=== PATIENT | male | born 1945 | race Caucasian/White ===

== ENCOUNTER 2024-07-02 18:08 | Inpatient (IN) | payer OTHER ==
[~2024-07-02] VITALS: Ht 175.3 cm; Wt 59.0 kg
[2024-07-02] MEDS ORDERED: ALBUTEROL FS 2.5 MG/3 ML VIAL.NEB ONE (18:25)
[2024-07-02] MEDS ORDERED: IPRATROPIUM NEB FS 0.5 MG/2.5 ML AMPUL.NEB ONE (18:25)
[2024-07-02 18:30] VITALS: O2SAT 93
[2024-07-02] MEDS: ALBUTEROL FS 2.5 MG/3 ML VIAL.NEB NEB ONE (18:30)
[2024-07-02] MEDS: IPRATROPIUM NEB FS 0.5 MG/2.5 ML AMPUL.NEB NEB ONE (18:30)
[2024-07-02] MEDS ORDERED: ONDANSETRON HCL/PF 4 MG/2 ML VIAL ONE (18:36)
[2024-07-02] MEDS ORDERED: methylPREDNISolone SOD SUCC 125 MG/2ML VIAL ONE (18:36)
[2024-07-02] MEDS ORDERED: Magnesium 1GM/D5W 100ML PREMIX 200 ML IV ONE (18:37)
[2024-07-02 18:42] LABS: BASOPHILS % (AUTO) 0.2 % (0.0-2.0); EOSINOPHILS # (AUTO) 0.2 K/uL (0.0-0.7); EOSINOPHILS % (AUTO) 2.6 % (0.0-6.0); HEMATOCRIT 43 % (39-51); HEMOGLOBIN 14.2 g/dL (13.5-17.5); LYMPHOCYTES # (AUTO) 1.9 K/uL (0.8-4.8); LYMPHOCYTES % (AUTO) 22.1 % (20.0-44.0); MEAN CORPUSCULAR HEMOGLOBIN 31 PG (26.0-33.0); MEAN CORPUSCULAR HGB CONC 33 g/dl (31.0-36.0); MEAN CORPUSCULAR VOLUME 94 fL (80-96); MONOCYTES % (AUTO) 11.4 % (2.0-12.0); NEUTROPHILS # (AUTO) 5.3 K/uL (1.8-8.9); NEUTROPHILS % (AUTO) 63.7 % (43.0-81.0); PLATELET COUNT (AUTO) 123 K/uL (150-450); RED CELL DISTRIBUTION WIDTH 15.6 % (11.5-15.0); WHITE BLOOD COUNT (AUTO) 8.4 K/uL (4.3-11.0)
[2024-07-02] MEDS: methylPREDNISolone SOD SUCC 125 MG/2ML VIAL IV ONE (18:42)
[2024-07-02] MEDS: ONDANSETRON HCL/PF 4 MG/2 ML VIAL IVP ONE (18:43)
[2024-07-02 18:45] VITALS: O2SAT 95
[2024-07-02] MEDS: Magnesium 1GM/D5W 100ML PREMIX 200 ML IV ONE (18:45)
[2024-07-02 18:46] VITALS: O2SAT 95
[2024-07-02 18:53] LABS: CARBON DIOXIDE 31 mmol/L (21-32); CHLORIDE 101 mmol/L (98-107); CREATININE 3.2 mg/dL (0.6-1.3); GLUCOSE 144 mg/dL (74-106); SODIUM SERUM 143 mmol/L (136-145); UREA NITROGEN, BLOOD 28 mg/dL (7-18)
[2024-07-02 19:01] VITALS: O2SAT 94
[2024-07-02 19:03] LABS: LACTIC ACID 2.4 mmol/L (0.4-2.0)
[2024-07-02 19:05] LABS: ALANINE AMINOTRANSFERASE 15 U/L (12-78); ALBUMIN 4.2 g/dL (3.4-5.0); ALKALINE PHOSPHATASE 86 U/L (46-116); ASPARTATE AMINOTRANSFERASE 11 U/L (15-37); BILIRUBIN,DIRECT 0.2 mg/dL (0.0-0.2); BILIRUBIN,TOTAL 0.5 mg/dL (0.2-1.0); NT-PRO BNP 634 pg/mL (0-125); TOTAL PROTEIN, SERUM 8.2 g/dL (6.4-8.2)
[2024-07-02 19:12] LABS: INR 1.03 (0.91-1.10); PARTIAL THROMBOPLASTIN TIME 23.6 SEC (24.3-34.3); PROTHROMBIN TIME 10.9 SECS (9.2-11.1)
[2024-07-02 19:28] LABS: ABG BASE EXCESS -0.2 mmol/L (-2.0-3.0); ABG OXYGEN SATURATION 91.3 % (94.0-98.0); ABG PCO2 36.2 mmHg (35.0-48.0); ABG PH 7.433 (7.350-7.450); ABG TOTAL HEMOGLOBIN 14.2 G/dL (13.5-17.5); COHb 0.3 % (0.5-1.5); MetHb 0.3 % (0.0-1.5); O2Hb 90.8 % (94.0-97.0); SITE, ABG Right Radial; VENT MODE, BG nasal cannula
[2024-07-02] MEDS: CEFEPIME 1 GM in IV D5W 50 ML IV ONE (20:04)
[2024-07-02] MEDS ORDERED: LORAZEPAM INJ 2 MG/ML VIAL ONE (20:06)
[2024-07-02] MEDS: LORAZEPAM INJ 2 MG/ML VIAL IV ONE (20:10)
--- NOTE | 2024-07-02 20:42 | NUR ---
MRSA sent to lab
[2024-07-02] MEDS ORDERED: VANCOMYCIN 1 GM /D5W 250 ML PB IV ONE (21:25)
[2024-07-02 22:00] VITALS: BP 146/71; TEMP 98.6; O2SAT 100; O2SAT 78
[2024-07-02] MEDS ORDERED: MAGNESIUM HYDROXIDE 30 ML UDC PO PRN (22:00)
[2024-07-02] MEDS ORDERED: ONDANSETRON HCL/PF 4 MG/2 ML VIAL IVP PRN (22:00)
[2024-07-02] MEDS: VANCOMYCIN 1 GM in IV D5W 250 ML IV ONE (22:00)
--- NOTE | 2024-07-02 22:00 | NUR ---
RN HAND OFF NOTE RECEIVE REPORT FROM LINA FROM ED. PT CAME IN VIA GURNEY. ALERT AND ORIENTED X 3, VERBALLY RESPONSIVE AND ABLE TO MAKE NEEDS KNOWN. RESPIRATION EVEN AND UNLABORED AT THIS TIME. NO SOB. ON O2 VIA NC @ 4LPM. DENIES PAIN OR DISCOMFORT WHEN ASKED. PT CONNECTED TO THE MONITOR. SAFETY MEASURES IN PLACE, BED IN LOW, LOCKED POSITION. CALL LIGHT WITHIN EASY REACH.
--- NOTE | 2024-07-02 22:01 | NUR ---
Report given to Fabrice
[2024-07-02] MEDS ORDERED: ALBUTEROL FS 2.5 MG/0.5 ML VIAL.NEB NEB PRN (22:30)
[2024-07-03] VITALS (15 sets, daily range): BP systolic 118–141; BP diastolic 66–74; TEMP 97.7–98.8; O2SAT 95–100
[2024-07-03] MEDS: POTASSIUM CL. PREMIX PERIPHER. 50 ML IV SCH (01:19)
[2024-07-03] MEDS: POTASSIUM CL. PREMIX PERIPHER. 100 ML ONE (01:33)
--- NOTE | 2024-07-03 01:33 | NUR ---
POTASSIUM CHLORIDE 10MEQ/50ML X 2 BAGS OVERRIDE BY CHARGE NURSE ROBERTO BURRELL.
[2024-07-03] MEDS: LORAZEPAM INJ 2 MG/ML VIAL IV PRN (03:16)
[2024-07-03] MEDS: methylPREDNISolone SOD SUCC 40 MG/ML VIAL IV SCH (04:59)
[2024-07-03] MEDS ORDERED: CEFEPIME 2 GM in IV D5W 100 ML IV SCH (05:00)
[2024-07-03 06:43] LABS: HEMATOCRIT 38 % (39-51); HEMOGLOBIN 12.6 g/dL (13.5-17.5); LYMPHOCYTES # (AUTO) 0.3 K/uL (0.8-4.8); LYMPHOCYTES % (AUTO) 2.3 % (20.0-44.0); MEAN CORPUSCULAR HEMOGLOBIN 31 PG (26.0-33.0); MEAN CORPUSCULAR HGB CONC 34 g/dl (31.0-36.0); MEAN CORPUSCULAR VOLUME 92 fL (80-96); MONOCYTES # (AUTO) 0.3 K/uL (0.1-1.30); MONOCYTES % (AUTO) 2.2 % (2.0-12.0); NEUTROPHILS # (AUTO) 11.3 K/uL (1.8-8.9); NEUTROPHILS % (AUTO) 95.5 % (43.0-81.0); PLATELET COUNT (AUTO) 107 K/uL (150-450); RED BLOOD CELL COUNT(AUTO) 4.06 MIL/uL (4.5-6.0); RED CELL DISTRIBUTION WIDTH 15.2 % (11.5-15.0); WHITE BLOOD COUNT (AUTO) 11.9 K/uL (4.3-11.0)
[2024-07-03 06:54] LABS: CALCIUM, SERUM 8.8 mg/dL (8.5-10.1); CARBON DIOXIDE 26 mmol/L (21-32); CHLORIDE 100 mmol/L (98-107); CREATININE 4.3 mg/dL (0.6-1.3); GLUCOSE 132 mg/dL (74-106); MAGNESIUM 2.8 mg/dL (1.8-2.4); PHOSPHORUS 3.1 mg/dL (2.5-4.9); POTASSIUM 4.4 mmol/L (3.5-5.1); SODIUM SERUM 139 mmol/L (136-145); UREA NITROGEN, BLOOD 41 mg/dL (7-18)
--- NOTE | 2024-07-03 07:33 | NUR ---
VIOLIN MECHANIC OPENING NOTE (DAY SHIFT) PT RECEIVED IN BED ASLEEP, EASILY AROUSED, A/O X 3, ABLE TO MAKE HIS NEEDS KNOWN. PT IS CURRENTLY ON 4 LPM OXYGEN VIA NC SATURATING AT 97% AND DENIES SOB. PT HAS IV ACCESS ON THE RAC #20G AND A PERMACATH ON THE RIGHT CHEST WALL. PT IS CURRENTLY ON TELE MONITORING WITH A READING OF SR WITH A PULSE RANGING IN THE 70'S. ALL SAFETY MEASURES IN PLACE, BED IS LOCKED, ON THE LOWEST POSITION, WITH CALL LIGHT AND BEDSIDE TABLE WITHIN EASY REACH. PLAN OF CARE ONGOING PER HOSPITALIST.
[2024-07-03] MEDS ORDERED: VANCOMYCIN 500 MG in IV D5W 100 ML IV PRN (08:00)
[2024-07-03] MEDS: HEPARIN SODIUM, PORCINE 5000 UNITS/1 ML VIAL SQ SCH (09:42)
[2024-07-03] MEDS: IPRATROPIUM NEB FS 0.5 MG/2.5 ML AMPUL.NEB NEB SCH (10:05)
[2024-07-03] MEDS: ALBUTEROL FS 2.5 MG/0.5 ML VIAL.NEB NEB SCH (10:05)
[2024-07-03] MEDS ORDERED: IOHEXOL-350 100 ML VIAL IV ONE (11:49)
[2024-07-03] MEDS ORDERED: IV NS 0.9% 250 ML IV ONE (11:49)
[2024-07-03 11:51] LABS: THYROID STIMULATING HORMONE 0.95 uIU/mL (0.358-3.74)
[2024-07-03] MEDS ORDERED: DOXA2TAB2 PO (11:53)
[2024-07-03] MEDS ORDERED: VALA500T40 PO (11:53)
[2024-07-03] MEDS ORDERED: CLOP75TA15 PO (11:53)
[2024-07-03] MEDS ORDERED: SERT100T PO (11:53)
[2024-07-03] MEDS ORDERED: ALBU8.5H8 IH (11:53)
[2024-07-03] MEDS ORDERED: LORA-258 PO (11:53)
[2024-07-03] MEDS ORDERED: AMLO-213 PO (11:53)
--- NOTE | 2024-07-03 12:29 | NUR ---
RN NOTE THIS RN WITNESSED AN ATIVAN WASTE OF 1.5MG AND 0.5MG ADMINISTERED BY ROBERTO KESSLER.
--- NOTE | 2024-07-03 12:36 | NUR ---
WASTE OF CONTROLLED MEDICATION Nurse Magy Duran RN, witnessed nurse Bello removed 1 vial of ativan 2mg from [employer] refrigerator, waste 1.5 mg into white waste medication jug, and give 0.5 mg IV ativan to patient at 12:29 hours.
[2024-07-03] MEDS: LORAZEPAM INJ 2 MG/ML VIAL IV ONE (12:43)
--- NOTE | 2024-07-03 18:24 | NUR ---
WATCH CRYSTAL MOLDER CLOSING NOTE (DAY SHIFT) PATIENT IS IN BED AWAKE, A/O X 3, ABLE TO MAKE HIS NEEDS KNOWN. PT IS CURRENTLY ON 4 LPM OXYGEN VIA NC SATURATING AT 97% AND DENIES SOB. PT HAS IV ACCESS ON THE RAC #20G AND A PERMA CATH ON THE RIGHT CHEST WALL. PT IS CURRENTLY ON TELE MONITORING WITH A READING OF SR WITH A PULSE RANGING IN THE 70'S. ALL SAFETY MEASURES IN PLACE, BED IS LOCKED, ON THE LOWEST POSITION, WITH CALL LIGHT AND BEDSIDE TABLE WITHIN EASY REACH. PATIENT PRESENTS COMFORTABLE WITH FATIGUE MOST OF SHIFT. DID HAVE ONE EPISODE OF ANXIETY AND CHEST DISCOMFORT ONLY WHEN HE COUGHED. ALLEVIATED ANXIETY WELL WITH ONE TIME DOSE OF ATIVAN 0.5 MG IV PUSH. hAD STABLE vs AND AFEBRILE THROUGHOUT SHIFT. WILL ENDORSE TO BAKELITE MOLDER RN FOR VIOLETTA.
--- NOTE | 2024-07-03 19:25 | NUR ---
MEDART OPERATOR OPENING NOTE PT RECEIVED IN BED RESTING; A/OX 3 ABLE TO MAKE NEEDS MET. PT IS CURRENTLY ON 4L SATURATING AT 97% AND DENIES SOB WHILE ON NASAL CANNULA. PT HAS IV ACCESS ON THE RAC #20G AND A PERMACATH ON THE RIGHT CHEST WALL. PT IS CURRENTLY ON TELE MONITORING WITH A READING OF SR WITH A PULSE RANGING IN THE 70'S. ALL SAFETY MEASURES IN PLACE, BED IS LOCKED, ON THE LOWEST POSITION, WITH CALL LIGHT AND BEDSIDE TABLE WITHIN EASY REACH. PLAN OF CARE ONGOING.
[2024-07-03] MEDS ORDERED: CEFEPIME 1 GM VIAL ONE (23:56)
[2024-07-04] VITALS (13 sets, daily range): BP systolic 129–154; BP diastolic 60–95; TEMP 98.2–98.6; O2SAT 93–99
[2024-07-04] MEDS: CEFEPIME 1 GM in IV D5W 50 ML IV SCH (00:09)
[2024-07-04] MEDS: LORAZEPAM INJ 2 MG/ML VIAL IV ONE (00:17)
--- NOTE | 2024-07-04 00:17 | NUR ---
RN NOTE WASTED WITH ROBERTO HILL ATIVAN 1.5MG=0.75, ADMINISTERED 0.5MG=0.25ML TO PATIENT. PLAN OF CARE ONGOING
--- NOTE | 2024-07-04 00:17 | NUR ---
RN NOTE; WITNESSED WASTING OF ATIVAN 1.5MG=0.75ML, ONLY 0.5MG=0.25ML WAS GIVEN BY ROBERTO VILLAGRAN.
--- NOTE | 2024-07-04 00:17 | NUR ---
FAST FOODS WORKER NOTE NEW ORDER FOR ATIVAN 0.5 MG IV PUSH ONCE. CONTACTED SECURITY CHECKER PATRICIA LOONEY DUE TO PATIENT STATING HE IS GETTING VERY ANXIOUS DURING HIS STAY. NURSING INTERVENTIONS SUCH DEEP BREATHING AND DISTRACTIONS ARE INEFFECTIVE. ATIVAN ADMINISTERED ONE TIME ONLY; PLAN OF CARE ONGOING.
--- NOTE | 2024-07-04 05:30 | NUR ---
RN NOTE ADMINISTERED PRN TYLENOL 650 MG PO DUE TO PATIENT STATING MUSCLE SORENESS. WILL CONTINUE TO MONITOR.
[2024-07-04] MEDS: ACETAMINOPHEN 325 MG TABLET PO PRN (05:38)
--- NOTE | 2024-07-04 06:30 | NUR ---
RN NOTE NEW ORDERS ACQUIRED FROM ANDRADE LOONEY FOR ROBITUSSIN DM 5ML AND TESSALON 100MG TID PRN FOR CHEST CONGESTION AND COUGH. PATIENT IS EXHIBITING A DRY COUGH AND IS COMPLAINING OF CHEST CONGESTION. NEW ORDER SUBMITTED AND WILL ADMINISTER ONCE VERIFIED. PLAN OF CARE ONGOING.
[2024-07-04] MEDS: BENZONATATE 100 MG CAPSULE PO PRN (06:41)
[2024-07-04] MEDS: GUAIFENESIN/D-METHORPHAN HB 5 ML UDC PO PRN (06:41)
--- NOTE | 2024-07-04 06:55 | NUR ---
DRILL PRESS OPERATOR CLOSING NOTE PT IN BED RESTING, A/OX4 ABLE TO MAKE NEEDS MET. PT IS ON NASAL CANNULA FLOWING 4L WITH A SATURATING OF 97%. PT IS ON TELE MONITORING WITH A READING OF SR WITH A PULSE RANGING IN THE 70'S. PT HAS IV ACCESS ON THE RAC #20G, AND A PERMACATH ON THE RIGHT CHEST WALL. ALL SCHEDULED MEDICATIONS GIVEN WITH ALL SAFETY MEASURES IN PLACE; BED IS LOCKED, ON THE LOWEST POSITION, WITH CALL LIGHT AND BEDSIDE TABLE WITHIN EASY REACH. WILL GIVE REPORT TO AM NURSE FOR ONGOING CARE.
[2024-07-04 06:59] LABS: HEMATOCRIT 38 % (39-51); HEMOGLOBIN 12.8 g/dL (13.5-17.5); LYMPHOCYTES # (AUTO) 0.3 K/uL (0.8-4.8); LYMPHOCYTES % (AUTO) 3.4 % (20.0-44.0); MEAN CORPUSCULAR HEMOGLOBIN 31 PG (26.0-33.0); MEAN CORPUSCULAR HGB CONC 34 g/dl (31.0-36.0); MEAN CORPUSCULAR VOLUME 93 fL (80-96); MONOCYTES # (AUTO) 0.1 K/uL (0.1-1.30); MONOCYTES % (AUTO) 1.4 % (2.0-12.0); NEUTROPHILS # (AUTO) 9.4 K/uL (1.8-8.9); NEUTROPHILS % (AUTO) 95.2 % (43.0-81.0); PLATELET COUNT (AUTO) 89 K/uL (150-450); RED BLOOD CELL COUNT(AUTO) 4.14 MIL/uL (4.5-6.0); RED CELL DISTRIBUTION WIDTH 15.4 % (11.5-15.0); WHITE BLOOD COUNT (AUTO) 9.9 K/uL (4.3-11.0)
[2024-07-04 07:29] LABS: CALCIUM, SERUM 8.9 mg/dL (8.5-10.1); CARBON DIOXIDE 27 mmol/L (21-32); CHLORIDE 98 mmol/L (98-107); CREATININE 5.3 mg/dL (0.6-1.3); GLUCOSE 138 mg/dL (74-106); POTASSIUM 4.5 mmol/L (3.5-5.1); SODIUM SERUM 137 mmol/L (136-145); UREA NITROGEN, BLOOD 65 mg/dL (7-18)
--- NOTE | 2024-07-04 07:34 | NUR ---
RN OPENING NOTE RECEIVED PT IN BED RESTING; A/OX 3 ABLE TO MAKE NEEDS KNOW. PT IS CURRENTLY ON 4L SATURATING AT 97% AND DENIES SOB WHILE ON NASAL CANNULA. PT HAS IV ACCESS ON THE RAC #20G AND A PERMACATH ON THE RIGHT CHEST WALL. PT IS CURRENTLY ON TELE MONITORING SR. ALL SAFETY MEASURES IN PLACE, BED IS LOCKED, ON THE LOWEST POSITION, CALL LIGHT AND BEDSIDE TABLE WITHIN REACH. WILL CONTINUE PLAN OF CARE.
[2024-07-04 08:09] LABS: FOLIC ACID 7.4 ng/mL (>3.0)
--- NOTE | 2024-07-04 09:28 | NUR ---
RN NOTES PT'S CALLED, ASKED DR GALAN COMMUNICATE WITH HIS OUTPATIENT JEWEL BEARING TURNER DR CHE VALDEZ REGARDING HD. DR GALAN NOTIFIED
[2024-07-04 09:48] LABS: BASOPHILS % (MANUAL) 0 % (0.0-2.0); EOSINOPHILS % (MANUAL) 0 % (0-4); LYMPHOCYTES % (MANUAL) 3 % (16-48); MONOCYTES % (MANUAL) 2 % (0-11.0); NEUTROPHILS % (MANUAL) 95 (42-76); PLATELET ESTIMATE DECREASED
[2024-07-04] MEDS ORDERED: LORAZEPAM 0.5 MG TABLET PO PRN (10:00)
[2024-07-04] MEDS ORDERED: ALBUTEROL FS 2.5 MG/0.5 ML VIAL.NEB NEB PRN (10:30)
[2024-07-04] MEDS: CLOPIDOGREL BISULFATE 75 MG TABLET PO SCH (10:44)
[2024-07-04] MEDS: AMLODIPINE BESYLATE 10 MG TABLET PO SCH (10:45)
--- NOTE | 2024-07-04 19:35 | NUR ---
RN OPENING NOTE RECEIVED PATIENT RESTING COMFORTABLY IN BED, A/OX4. ABLE TO MAKE NEEDS KNOWN. CURRENTLY ON 4L VIA NC SATURATING OF 96%.ON TELE MONITORING SR WITH HR 70'S. WITH IV ACCESS ON THE RIGHT AC #20G, AND A PERMACATH ON THE RIGHT CHEST WALL. ABLE TO USE TOILET. REMIND PT TO CALL FOR ASSISTANCE. ALL SAFETY MEASURES IN PLACE: BED IS LOCKED, ON THE LOWEST POSITION, WITH CALL LIGHT AND BEDSIDE TABLE WITHIN EASY REACH. WILL CONTINUE CURRENT PLAN OF CARE.
[2024-07-04 19:44] LABS: APPEARANCE,URINE CLEAR (CLEAR); BILIRUBIN,URINE NEGATIVE (NEGATIVE); BLOOD, URINE 1+ Ery/uL (NEGATIVE); COLOR,URINE YELLOW (YELLOW); KETONES,URINE NEGATIVE (NEGATIVE); LEUKOCYTE ESTERASE ,URINE NEGATIVE (NEGATIVE); NITRITE, URINE NEGATIVE (NEGATIVE); PROTEIN,URINE 1+ mg/dl (NEGATIVE); UGLUCOSE NEGATIVE (NEGATIVE); UROBILINOGEN,URINE 0.2 EU/dL (0.2)
--- NOTE | 2024-07-04 19:46 | NUR ---
RN CLOSING NOTE PT IN BED RESTING, A/OX4 ABLE TO MAKE NEEDS MET. PT IS ON NASAL CANNULA FLOWING 4L WITH A SATURATING OF 97%. PT IS ON TELE MONITORING WITH A READING OF SR WITH A PULSE RANGING IN THE 70'S. PT HAS IV ACCESS ON THE RAC #20G, AND A PERMACATH ON THE RIGHT CHEST WALL. ALL SCHEDULED MEDICATIONS GIVEN WITH ALL SAFETY MEASURES IN PLACE; BED IS LOCKED, ON THE LOWEST POSITION, WITH CALL LIGHT AND BEDSIDE TABLE WITHIN EASY REACH.
[2024-07-04 19:55] LABS: CREATININE, URINE 90.6 MG/DL (30.0-125.0); URINE TOTAL PROTEIN 85.4 mg/dL (0-11.9)
[2024-07-04 19:56] LABS: ADD URINE CULTURE NO; BACTERIA,URINE Few /HPF (None Seen); SQUAMOUS EPITHELIAL CELL,UR Few /HPF (None Seen); WBC,URINE 0-2 /HPF (0-3)
[2024-07-04 19:57] LABS: EOSINOPHIL,URINE None Seen
[2024-07-04] MEDS: DOXAZOSIN MESYLATE (1 MG) 1 MG TABLET PO SCH (21:36)
--- NOTE | 2024-07-04 21:59 | NUR ---
RN NOTES 2100 HEPARIN DOSE HELD PER PATRICIA LOONEY BELL MAKER, PLATELET COUNT IS 89.
[2024-07-05] VITALS (9 sets, daily range): BP systolic 124–160; BP diastolic 60–78; TEMP 97.2–98.2; O2SAT 94–99
[2024-07-05 00:58] LABS: THYROID STIMULATING HORMONE 0.52 uIU/mL (0.358-3.74)
[2024-07-05] MEDS: MAG HYDROX/AL HYDROX/SIMETH 30 ML UDC PO PRN (03:29)
[2024-07-05 06:44] LABS: HEMATOCRIT 38 % (39-51); HEMOGLOBIN 12.7 g/dL (13.5-17.5); LYMPHOCYTES # (AUTO) 0.3 K/uL (0.8-4.8); LYMPHOCYTES % (AUTO) 2.6 % (20.0-44.0); MEAN CORPUSCULAR HEMOGLOBIN 31 PG (26.0-33.0); MEAN CORPUSCULAR HGB CONC 34 g/dl (31.0-36.0); MEAN CORPUSCULAR VOLUME 93 fL (80-96); MONOCYTES # (AUTO) 0.3 K/uL (0.1-1.30); MONOCYTES % (AUTO) 2.7 % (2.0-12.0); NEUTROPHILS # (AUTO) 9.4 K/uL (1.8-8.9); NEUTROPHILS % (AUTO) 94.7 % (43.0-81.0); PLATELET COUNT (AUTO) 88 K/uL (150-450); RED BLOOD CELL COUNT(AUTO) 4.05 MIL/uL (4.5-6.0); RED CELL DISTRIBUTION WIDTH 15.5 % (11.5-15.0); WHITE BLOOD COUNT (AUTO) 9.9 K/uL (4.3-11.0)
--- NOTE | 2024-07-05 06:51 | NUR ---
SKATING RINK ICE MAKER CLOSING NOTE PATIENT REMAINS STABLE IN BED, TOLERATING 4L VIA NC SATURATING OF 97%. ON TELE MONITORING SR WITH HR 70'S.INTACT IV ACCESS ON THE RIGHT AC #20G, AND A PERMA CATH ON THE RIGHT CHEST WALL. ALL DUE MEDS GIVEN ORDERED. ASSISTED WITH ALL HIS NEEDS. KEPT BED LOCKED, ON THE LOWEST POSITION, WITH CALL LIGHT AND BEDSIDE TABLE WITHIN EASY REACH. WILL ENDORSE TO INCOMING SHIFT RN.
[2024-07-05 07:04] LABS: CALCIUM, SERUM 9.2 mg/dL (8.5-10.1); CARBON DIOXIDE 24 mmol/L (21-32); CHLORIDE 96 mmol/L (98-107); CREATININE 5.8 mg/dL (0.6-1.3); GLUCOSE 139 mg/dL (74-106); SODIUM SERUM 134 mmol/L (136-145)
[2024-07-05 07:05] LABS: UREA NITROGEN, BLOOD 81 mg/dL (7-18)
--- NOTE | 2024-07-05 07:30 | NUR ---
TIRE DUSTER AM NOTES PATIENT IN BED, A/OX4. ABLE TO MAKE NEEDS KNOWN. CURRENTLY ON 4L VIA NC SATURATING OF 94%. RESPIRATION UNLABORED. DENIES SOB. SR WITH HR 68 ON MONITOR. DENIES CHEST PAIN OR DISCOMFORT. WITH IV ACCESS ON THE RIGHT AC #20G, AND A PERMACATH ON THE RIGHT CHEST WALL. BRP.REMINDED PT TO CALL FOR ASSISTANCE. ALL SAFETY MEASURES IN PLACE: BED IS LOCKED, ON THE LOWEST POSITION, WITH CALL LIGHT AND BEDSIDE TABLE WITHIN EASY REACH. WILL CONTINUE CURRENT PLAN OF CARE
[2024-07-05] MEDS: SERTRALINE HCL 50 MG TABLET PO SCH (08:40)
[2024-07-05] MEDS: ATORVASTATIN 40 MG TABLET PO SCH (08:45)
[2024-07-05] MEDS: VALACYCLOVIR HCL 500 MG TABLET PO SCH (08:45)
--- NOTE | 2024-07-05 09:30 | NUR ---
RN NOTES DUE MEDS GIVEN
--- NOTE | 2024-07-05 10:30 | NUR ---
RN NOTES SPOKE WITH [facility]RIS HD NURSE, PER HIM, G[facility]E WILL DO HD TOMORROW
[2024-07-05 11:21] LABS: ANISOCYTOSIS 1+; BASOPHILS % (MANUAL) 0 % (0.0-2.0); EOSINOPHILS % (MANUAL) 0 % (0-4); LYMPHOCYTES % (MANUAL) 6 % (16-48); MONOCYTES % (MANUAL) 2 % (0-11.0); NEUTROPHILS % (MANUAL) 92 (42-76); PLATELET ESTIMATE DECREASED
[2024-07-05] MEDS: methylPREDNISolone SOD SUCC 40 MG/ML VIAL IV SCH (12:15)
[2024-07-05] MEDS ORDERED: ALBU8.5H8 INH (14:58)
[2024-07-05] MEDS ORDERED: METH4TAB3 PO (14:58)
--- NOTE | 2024-07-05 16:26 | NUR ---
RN NOTES PER PATIENT THEY WOULD LIKE TO GO HOME SINCE THEY HAVE A SCHEDULED HD TOMORROW AT [facility].
--- NOTE | 2024-07-05 17:09 | NUR ---
RN NOTES PATIENT DISCHARGED TO HOME TODAY PER MD IN STABLE CONDITION. PROVIDED DC INSTRUCTION, HEALTH TEACHINGS AND MED RECON LIST. WILL FOLLOW UP WITH PCP IN 1 WEEK AND WILL MAKE OWN SCHEDULE. IV ACCES ON RT AC REMOVED, APPLIED PRESSURE, NO BLEEDING, DRESSING IN PLACE. PATIENT PREFERRED TO HAVE HEMODIALYSIS TOMORROW AT [facility] SINCE THEY HAVE A SCHEDULE. ALL BELONGINGS CHECKED AND RETURNED. ALL PAPERWORKS SIGNED. ACCOMPANIED BY AND CABREL TO LOBBY AND WILL BE TRANSPORTED TO HOME VIA PRIVATE CAR.
== END 2024-07-05 17:10 | disposition home or self-care (01) | DRG 73 ==
LOC: ER 18:11 → TELE1 21:36 → MEDSG1 07-05 11:06 → UNDODISIN 07-05 14:35
PROVIDERS: ATTEND Nurse Practitioner Acute Care
DX: G90.8 Other disorders of autonomic nervous system (principal); J96.01 Acute respiratory failure with hypoxia; N18.6 End stage renal disease; J45.901 Unspecified asthma with (acute) exacerbation; I12.0 Hypertensive chronic kidney disease with stage 5 chronic kidney disease or end stage renal disease; E87.20 Acidosis, unspecified; Z99.2 Dependence on renal dialysis; I25.2 Old myocardial infarction; Z82.71 Family history of polycystic kidney; Z95.5 Presence of coronary angioplasty implant and graft; Z87.891 Personal history of nicotine dependence; E87.6 Hypokalemia; I25.10 Atherosclerotic heart disease of native coronary artery without angina pectoris; M89.8X9 Other specified disorders of bone, unspecified site; E83.42 Hypomagnesemia; D64.9 Anemia, unspecified
CPT/HCPCS: 36415; 36600; 70450-TC; 70496-TC; 70498-TC; 71045-TC; 80048-TC; 80061-TC; 80076-TC; 80202-TC; 81001; 82570-TC; 82607-TC; 82803-TC; 83605-TC; 83735-TC; 83880; 83921; 84100-TC; 84300-TC; 84425; 84439-TC; 84443-TC; 84484-TC; 85025-TC; 85730-TC; 87081-TC; 93307-TC; 93880-TC; 93970-TC; 94760-TC; 94799-TC; 97112-TC; 97116-TC; 97530-TC; A4223; G0378; J0692; J1644; J2060; J2405; J2919; J3370; J3475; J3480; J7050; J7060; Q9967